=== PATIENT | female | born 1970 | race Caucasian/White ===

== ENCOUNTER 2016-04-25 12:40 | Outpatient (CLI) | payer OTHER ==
[2016-04-25 12:58] LABS: APPEARANCE,URINE Clear (CLEAR); COLOR,URINE Yellow (YELLOW); OCCULT BLOOD,URINE Trace-intact (NEGATIVE); UROBILINOGEN URINE 0.2 Eu (0.2-1.0)
[2016-04-25 13:10] LABS: AMORPHOUS SEDIMENT,UR FEW (NEGATIVE)
== END 2016-04-25 12:50 ==
LOC: LAB 12:40
PROVIDERS: ATTEND Family Medicine
DX: N39.43 Post-void dribbling (principal)
CPT/HCPCS: 81002; 87088; 87186

== ENCOUNTER 2016-05-26 09:00 | Outpatient (CLI) | payer OTHER | END 2016-05-26 09:05 | disposition home or self-care (01) | LOC: LAB 09:00 | PROVIDERS: ATTEND Physician Assistant | DX: M25.572 Pain in left ankle and joints of left foot (principal) | CPT/HCPCS: 84550 ==

== ENCOUNTER 2016-06-04 10:26 | Outpatient (CLI) | payer OTHER ==
--- NOTE | 2016-06-04 15:54 | Diagnostic Imaging Report ---
JUDD GARCIA [facility] [id number] [facility] [address] [address] Report Submission Date: Jun 04, 2016 2:38:08 PM [place] Patient Study Name: SHARMILA VYAS Date: Jun 04, 2016 10:38:02 AM [place] Modality Type: CR Gender: F Description: LOWER EXTREMITY : 72 Institution: [facility] Physician: JUDD GARCIA Left foot -three views CLINICAL HISTORY: Pain in the 1st metatarsophalangeal joint for 2 weeks. FINDINGS: Examination left foot in plantar, lateral and oblique views demonstrates mild narrowing of the 1st metatarsophalangeal joint. There is no evident fracture and no lytic or blastic lesion. Calcaneal spurs are seen on the lateral view. IMPRESSION: Degenerative changes. No fracture. Electronically signed on Jun 04, 2016 2:38:08 PM [place] MAN by: Nile DANIELS
== END 2016-06-04 10:30 ==
LOC: LAB 10:26
PROVIDERS: ATTEND Family Medicine
DX: M79.675 Pain in left toe(s) (principal)
CPT/HCPCS: 36415; 73630; 84550

== ENCOUNTER 2018-09-29 10:21 | Outpatient (CLI) | payer OTHER ==
--- NOTE | 2018-09-29 10:52 | Diagnostic Imaging Report ---
S[facility] [id number] [facility] [address] [address] Report Submission Date: Sep 29, 2018 10:50:26 AM CDT Patient Study Name: SHARMILA VYAS Date: Sep 29, 2018 10:25:17 AM CDT Modality Type: DX Gender: F Description: TOES 2 VIEWS OR MORE : 72 Institution: [facility] Physician: SOU[facility]OOKER Exam: Right 5th toe. History: Pain. AP, lateral and oblique view of the right 5th toe are submitted. An acute fracture through the head of the 5th proximal phalanx is noted. Degenerate changes at the interphalangeal joints are noted. Soft tissue swelling about the toe is noted. Impression: Acute fracture noted through the head of the 5th proximal phalanx. Electronically signed on Sep 29, 2018 10:50:26 AM CDT by: Ravi DANIELS
== END 2018-09-29 10:23 ==
LOC: RAD 10:21
PROVIDERS: ATTEND Podiatrist Foot & Ankle Surgery
DX: M79.671 Pain in right foot (principal)
CPT/HCPCS: 73660

== ENCOUNTER 2019-02-27 09:37 | Outpatient (CLI) | payer OTHER ==
[2019-02-27 10:17] LABS: BASOPHILS % 0.4 % (0.0-1.5)
[2019-02-27 10:28] LABS: APPEARANCE,URINE CLEAR (CLEAR); COLOR,URINE YELLOW (YELLOW)
[2019-02-27 10:29] LABS: OCCULT BLOOD,URINE NEGATIVE (NEGATIVE)
[2019-02-27 10:33] LABS: UROBILINOGEN URINE 0.2 Eu (0.2-1.0)
[2019-02-27 10:45] LABS: eGFR (Non-African) > 60
--- NOTE | 2019-02-27 11:10 | Diagnostic Imaging Report ---
PATIENT MR#: [id number] PATIENT PATIENT NAME: SHARMILA VYAS DATE OF : 1970 REFERRING PHYSICIAN: Michelle Burch EXAM DATE: 02/27/2019 ACCESSION NUMBER: [id number] EXAM DESCRIPTION: ABD COMPLETE HISTORY: UPPER AND LOWER MIDLINE ABDOMINAL PAIN X3 WEEKS, WITH CONSTIPATION COMPARISON: No pertinent prior studies are available at this time. ABDOMINAL XRAY, 5 FRONTAL VIEWS: Bowel gas pattern: Mild-moderate stool throughout the colon. No evidence of small bowel obstruction. No free air. Calcifications: No findings to suggest nephrolithiasis by x-ray sensitivity. Skeleton: Intact. IMPRESSION: Mild-moderate colonic stool without obstruction. Read by: Dr. Gualberto Rodríguez Transcribed by: Gualberto Rodríguez Transcribed Date: 02/27/2019 11:09:54 AM Electronically signed by: Dr. Gualberto Rodríguez Date signed: 02/27/2019 11:09:54 AM
== END 2019-02-27 09:42 ==
LOC: LAB 09:37
PROVIDERS: ATTEND Nurse Practitioner Family
DX: R10.13 Epigastric pain (principal); R10.84 Generalized abdominal pain
CPT/HCPCS: 36415; 74019; 80053; 81002; 83690; 85025